=== PATIENT | female | born 1945 | race Caucasian/White ===

== ENCOUNTER 2017-05-17 12:12 | Emergency (ER) | payer MEDICARE, OTHER ==
[~2017-05-17] VITALS: Ht 162.6 cm; Wt 72.0 kg
[~2017-05-17 12:12] MED LIST: /CLON1TA PO; /WARF25TA OR; ASPI81TA7 PO; ATOR1TAB21 PO; BONI150T PO; CARISPRODOL PO; CHLO25TA3 PO; CYMB60CA3 PO; KLOR10TA5 PO; LUMI0.01 OU; OXYC30TA4 PO; PERC7.5T12 PO; TYLE325T5 PO; VERA360C PO; VITA200015 PO
[2017-05-17] MEDS ORDERED: SOMA350T PO (12:29)
[2017-05-17] MEDS ORDERED: NEUR600T PO (12:30)
[2017-05-17] MEDS ORDERED: POTA10CA PO (12:31)
[2017-05-17] MEDS ORDERED: ALEV220C2 PO (12:31)
[2017-05-17] MEDS ORDERED: HYDR-3713 PO (12:33)
[2017-05-17] MEDS ORDERED: CHLO25TA PO (12:33)
[2017-05-17] MEDS ORDERED: VITA200016 PO (12:33)
[2017-05-17] MEDS ORDERED: BIMA01SOL OU (12:33)
[2017-05-17] MEDS ORDERED: NS 1,000 ML IV SCH (12:39)
[2017-05-17] MEDS ORDERED: ONDANSETRON 4MG/2ML VIAL (J2405) IV ONE (12:45)
[2017-05-17 12:56] LABS: BASO # 0.1 K/mm3 (0.0-0.2); BASO % 0.4 % (0.0-1.0); EOS # 0.4 K/mm3 (0.0-0.50); EOS % 2.8 % (0.0-3.0); LARGE UNSTAINED CELL # 0.1 K/mm3 (0.0-0.4); LARGE UNSTAINED CELL % 0.6 % (0.0-4.0); LYMPH # 1.6 K/mm3 (1.5-4.5); LYMPH % 11.1 % (24.0-44.0); MEAN CORPUSCULAR HEMOGLOBIN 32.6 pg (27.0-33.0); MEAN CORPUSCULAR HGB CONC 34.4 g/dl (32.0-36.5); MEAN CORPUSCULAR VOLUME 94.7 fl (80.0-96.0); MONO # 0.5 K/mm3 (0.0-0.8); MONO % 3.6 % (0.0-5.0); NEUTROPHILS # 11.5 K/mm3 (1.8-7.7); NEUTROPHILS % 81.5 % (36.0-66.0); PLATELET COUNT, AUTOMATED 431 k/mm3 (150-450); WHITE BLOOD COUNT 14.1 K/mm3 (4.0-10.0)
[2017-05-17 13:24] LABS: ALBUMIN 4.1 GM/DL (3.2-5.2); ALBUMIN/GLOBULIN RATIO 0.91 (1.00-1.93); ALKALINE PHOSPHATASE 186 U/L (45-117); ALT/SGPT 35 U/L (12-78); ANION GAP 9 MEQ/L (8-16); AST/SGOT 20 U/L (15-37); BILIRUBIN,DIRECT 0.1 MG/DL (0.0-0.2); BILIRUBIN,TOTAL 0.8 MG/DL (0.2-1.0); BLOOD UREA NITROGEN 21 MG/DL (7-18); CALCIUM LEVEL 9.7 MG/DL (8.8-10.2); CARBON DIOXIDE LEVEL 26 MEQ/L (21-32); CHLORIDE LEVEL 100 MEQ/L (98-107); GLOMERULAR FILTRATION RATE > 60.0 (>39); GLUCOSE, FASTING 132 MG/DL (83-110); POTASSIUM SERUM 3.6 MEQ/L (3.5-5.1); SODIUM LEVEL 135 MEQ/L (136-145); TOTAL PROTEIN 8.6 GM/DL (6.4-8.2)
[2017-05-17] MEDS ORDERED: ACETAMINOPHEN 325 MG TAB As Ordered ONE (13:49)
[2017-05-17] MEDS ORDERED: ACETAMINOPHEN TAB 650MG DOSE (2X325MG) PO ONE (14:00)
[2017-05-17] MEDS ORDERED: GASTROGRAFIN SOLUTION 30ML (Q9963) PO ONE ×2 (14:15→14:45)
[2017-05-17] MEDS ORDERED: ISOVUE-370 76% 100ML VIAL (Q9967) As Ordered ONE (14:34)
[2017-05-17] MEDS ORDERED: PROMETHAZINE INJ 25 MG/ML VIAL (J2550) IV ONE (15:30)
--- NOTE | 2017-05-17 15:35 | REP ---
CT of the abdomen and pelvis with IV contrast, without bowel contrast: Comparison is 11/04/2013. The the patient has a known dumbbell shaped abdominal aortic aneurysm. The superior most portion today measures 30.1 mm (previously 30 mm). The inferior portion today measures 28 mm (previously 26 mm). There is no periaortic hematoma. There is vascular atheroma throughout the abdominal aorta. 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 There is no stenosis of the superior mesenteric artery. The visualized lung lopez are unremarkable. The hepatic parenchyma is homogeneous. There are surgical clips in the gallbladder fossa. The pancreas is unremarkable. The spleen is unremarkable. The adrenals and kidneys are unremarkable. There is no bowel distension or obstruction. Pelvis: The patient indicates he has an appendectomy. There is no ascites or adenopathy. There is wall thickening of the descending colon and sigmoid colon compatible with colitis in the appropriate clinical setting. The bladder is unremarkable. There is a right hip arthroplasty. There is surgical fusion of the lumbar spine. Impression: Wall thickening of the descending colon and sigmoid colon compatible with colitis in the appropriate clinical setting. No ascites or adenopathy. Dumbbell shaped abdominal aortic aneurysm as described. Cholecystectomy and appendectomy. Stenosis of the proximal celiac artery. Signed by Bubba Gagnon MD 05/17/2017 03:27 P
[2017-05-17] MEDS ORDERED: metroNIDAZOLE 500 MG in APPROPRIATE DILUENT 1 EA IV ONE (16:00)
[2017-05-17] MEDS ORDERED: CIPROFLOXACIN 400 MG in APPROPRIATE DILUENT 1 EA IV ONE (16:00)
[2017-05-17 16:14] VITALS: BP 154/84
[2017-05-17] MEDS ORDERED: CIPR-249 PO (19:25)
[2017-05-17] MEDS ORDERED: FLAG500T PO (19:25)
[2017-05-17] MEDS ORDERED: FLUC150T PO (19:30)
[2017-05-17] MEDS ORDERED: PROM50TA4 PO (19:37)
--- NOTE | 2017-05-18 05:53 | ED PDOC ---
Post-Departure Follow-Up radiology report faxed to Jaja Stewart MD May 18, 2017 05:53
== END 2017-05-17 19:45 | disposition home or self-care (01) ==
LOC: M ED 12:12 → EDBD 12:12 → M ED 19:45
DX: K52.9 Noninfective gastroenteritis and colitis, unspecified (principal); I10 Essential (primary) hypertension; E78.4 Other hyperlipidemia; Z87.891 Personal history of nicotine dependence
CPT/HCPCS: 74177; 80048; 80076; 83690; 85025; 93041; 94760; 96365; 96368; 96375; 99285; J0744; J2405; Q9967

== ENCOUNTER → 2017-08-12 | Outpatient (REF) | payer MEDICARE, OTHER ==
[~2017-08-12] MED LIST changes: +ALEV220C2 PO; +BIMA01SOL OU; +CHLO25TA PO; +CIPR-249 PO; +FLAG500T PO; +FLUC150T PO; +HYDR-3713 PO; +NEUR600T PO; +POTA10CA PO; +PROM50TA4 PO; +SOMA350T PO; +VITA200016 PO
[2017-08-12 18:58] LABS: URIC ACID 4.2 MG/DL (2.6-6.0)
== END ==
LOC: M LAB REF 16:41
PROVIDERS: ATTEND Nurse Practitioner Family
DX: M25.561 Pain in right knee (principal)

== ENCOUNTER 2019-01-23 18:40 | Emergency (ER) | payer MEDICARE, OTHER ==
[~2019-01-23 18:40] MED LIST changes: -/CLON1TA PO; -/WARF25TA OR; +CLON-412 PO; +COUM1TAB18 OR; +KLOR10TA76 PO; -POTA10CA PO
[2019-01-23] MEDS ORDERED: FUROSEMIDE 40 MG/4 ML VIAL (J1940) IV ONE (19:00)
[2019-01-23] MEDS ORDERED: NITROGLYCERIN 2% OINT 1 GM *U/D* PKT TOP ONE (19:00)
[2019-01-23 19:07] LABS: BASO # 0.1 10^3/uL (0.0-0.2); BASO % 0.7 % (0.0-1.0); EOS # 0.3 10^3/uL (0.0-0.50); EOS % 2.8 % (0.0-3.0); HEMATOCRIT 39.6 % (36.0-47.0); HEMOGLOBIN 12.3 g/dl (12.0-15.5); LYMPH # 3.8 10^3/uL (1.5-4.5); LYMPH % 36.6 % (24.0-44.0); MEAN CORPUSCULAR HGB CONC 31.1 g/dl (32.0-36.5); MEAN CORPUSCULAR VOLUME 103.1 fl (80.0-96.0); MONO # 0.3 10^3/uL (0.0-0.8); MONO % 3.1 % (0.0-5.0); NEUTROPHILS # 5.8 10^3/uL (1.8-7.7); NEUTROPHILS % 55.7 % (36.0-66.0); PLATELET COUNT, AUTOMATED 439 10^3/uL (150-450); RED BLOOD COUNT 3.84 10^6/uL (4.00-5.40); WHITE BLOOD COUNT 10.4 10^3/uL (4.0-10.0)
[2019-01-23 19:08] VITALS: BP 145/70
--- NOTE | 2019-01-23 19:13 | REP ---
Clinical: Cough. Dyspnea. Comparison: 06/08/2012 Findings: The cardiac silhouette is within normal limits. Lung lopez demonstrate markedly increased interstitial markings and indistinct pulmonary vasculature along with possible mid to lower lobe opacities. Differential diagnosis includes interstitial edema as well as multifocal pneumonia / bronchitis. No effusion. No pneumothorax. Skeletal structures intact. Impression: Differential diagnosis includes interstitial edema versus multifocal pneumonia / bronchitis. Electronically Signed by Reynaldo Xavier MD 01/23/2019 07:05 P
[2019-01-23 19:14] LABS: ABG BASE EXCESS -5.3 (-2.0-2.0); ABG HCO3 23.4 MEQ/L (22.0-26.0); ABG O2 SATURATION 90.3 % (95.0-99.0); ABG TOTAL CO2 25.3 MEQ/L (23.0-31.0)
[2019-01-23 19:19] LABS: ABG PARTIAL PRESSURE CO2 60.4 mmHg (35.0-45.0); ABG pH (ARTERIAL) 7.206 UNITS (7.350-7.450)
[2019-01-23] MEDS ORDERED: ALBUTEROL SULFATE 2.5 MG/0.5 ML INH NEB SOLN INH ONE (19:30)
[2019-01-23] MEDS ORDERED: IPRATROPIUM 0.5MG/ALBUTEROL 2.5MG INH SOL UD 3ML (DUONEB)(J7620) NEB ONE (19:30)
[2019-01-23 19:36] LABS: INR 0.96; PROTHROMBIN TIME 12.9 SECONDS (12.1-14.4)
[2019-01-23 19:54] LABS: ALBUMIN 3.1 GM/DL (3.2-5.2); ALT/SGPT 52 U/L (12-78); BILIRUBIN,DIRECT < 0.1 MG/DL (0.0-0.2); BILIRUBIN,TOTAL 0.2 MG/DL (0.2-1.0); BLOOD UREA NITROGEN 25 MG/DL (7-18); CALCIUM LEVEL 8.6 MG/DL (8.8-10.2); CARBON DIOXIDE LEVEL 26 MEQ/L (21-32); CHLORIDE LEVEL 106 MEQ/L (98-107); CPK CREATINE PHOSPHOKINASE 260 U/L (26-192); CREATININE FOR GFR 1.28 MG/DL (0.55-1.30); GLOMERULAR FILTRATION RATE 43.4 (>39); GLUCOSE, FASTING 241 MG/DL (70-100); MB/CK RELATIVE INDEX 5.08 (< OR =4); NT-PRO BNP 4571 PG/ML (<125); POTASSIUM SERUM 4.4 MEQ/L (3.5-5.1); SODIUM LEVEL 143 MEQ/L (136-145); TOTAL PROTEIN 6.6 GM/DL (6.4-8.2); TROPONIN I 3.56 NG/ML (< 0.10)
[2019-01-23 20:14] LABS: PARTIAL THROMBOPLASTIN TIME 28.6 SECONDS (25.4-37.6)
[2019-01-23] MEDS ORDERED: HEPARIN DRIP 25,000 UNITS in APPROPRIATE DILUENT 1 EA IV SCH (20:53)
[2019-01-23] MEDS ORDERED: HEPARIN SOD (PORCINE) 5000 UNITS/ML VIAL IV ONE (21:00)
[2019-01-23 21:08] LABS: VENOUS BASE EXCESS 0.4 (-2.0-2.0); VENOUS HCO3 29.8 MEQ/L (23.0-27.0); VENOUS O2 SATURATION 62.2 % (60.0-80.0); VENOUS PARTIAL PRESSURE CO2 72.2 mmHg (38.0-50.0); VENOUS PARTIAL PRESSURE O2 38.7 mmHg (30.0-50.0); VENOUS PH 7.233 UNITS (7.330-7.430); VENOUS STANDARD HCO3 24.1 MEQ/L
--- NOTE | 2019-01-23 21:13 | ECGEPIP ---
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
--- NOTE | 2019-01-23 21:17 | ECGEPIP ---
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
[2019-01-23 21:50] LABS: MB/CK RELATIVE INDEX 5.02 (< OR =4); TROPONIN I 4.48 NG/ML (< 0.10)
[2019-01-23 22:15] LABS: ABG HCO3 28.2 MEQ/L (22.0-26.0); ABG O2 SATURATION 98.8 % (95.0-99.0); ABG PARTIAL PRESSURE CO2 51.2 mmHg (35.0-45.0); ABG PARTIAL PRESSURE O2 181.3 mmHg (75.0-100.0); ABG STANDARD HCO3 26.3 MEQ/L (22.0-26.0); ABG TOTAL CO2 29.8 MEQ/L (23.0-31.0); ABG pH (ARTERIAL) 7.359 UNITS (7.350-7.450)
[2019-01-23 23:55] VITALS: BP 102/58
== END 2019-01-23 23:59 | disposition short-term general hospital (02) ==
LOC: M ED 18:40 → EDBD 18:40 → M ED 23:59
DX: I21.4 Non-ST elevation (NSTEMI) myocardial infarction (principal); I50.9 Heart failure, unspecified; I44.7 Left bundle-branch block, unspecified; I11.0 Hypertensive heart disease with heart failure; E78.5 Hyperlipidemia, unspecified; I71.4 Abdominal aortic aneurysm, without rupture; Z79.82 Long term (current) use of aspirin; Z87.891 Personal history of nicotine dependence
CPT/HCPCS: 36415; 36600; 71045; 80048; 80076; 82550; 82553; 82803; 83605; 83880; 84443; 84484; 85025; 85610; 85730; 87040; 87486; 87581; 87633; 87798; 93005; 93041; 94640; 94660; 96374; 96375; 99285; J1940

== ENCOUNTER → 2019-03-13 | Outpatient (REF) | payer MEDICARE, OTHER ==
[2019-03-13 14:17] LABS: PERCENT SATURATION 29.6 % (13.2-45.0)
== END ==
LOC: M LAB REF 13:19
PROVIDERS: ATTEND Internal Medicine
DX: D64.9 Anemia, unspecified (principal)

== ENCOUNTER → 2019-04-11 | Outpatient (CLI) | payer MEDICARE, OTHER ==
--- NOTE | 2019-04-11 15:12 | REP ---
REASON: Pain after sprain. PRIORS: None. There is asymmetric joint space narrowing with osteophytosis and subchondral sclerosis involving the 1st metatarsophalangeal joint, which is severe in appearance. More mild to moderate degenerative changes are seen throughout the remainder of the foot. There is a large retrocalcaneal heel spur. IMPRESSION: Chronic changes, as described above. Electronically Signed by Rigoberto Galloway DO 04/12/2019 03:19 P
--- NOTE | 2019-04-11 19:49 | REP ---
Left ankle series: Four views. History: Sprain. Findings: Four views of the left ankle demonstrate intact ankle mortise. No fracture or subluxation is seen. There is some midfoot spurring. A chip fracture is suspected at the dorsal surface of the distal talus. There is Achilles and plantar calcaneal spurring. Impression: Suspect chip fracture at the dorsal aspect of the distal talus on the lateral film. There is overlying soft tissue swelling. 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 Electronically Signed by Yovany Simpson MD 04/11/2019 09:15 P
== END ==
LOC: M WUC 12:48
PROVIDERS: ATTEND Physician Assistant
DX: M25.772 Osteophyte, left ankle (principal); M77.32 Calcaneal spur, left foot

== ENCOUNTER → 2021-03-24 | Outpatient (REF) | payer MEDICARE, OTHER ==
[2021-03-24 17:37] LABS: CREATININE FOR GFR 1.13 MG/DL (0.55-1.30); GLOMERULAR FILTRATION RATE 49.8 (>39)
== END ==
LOC: M LAB REF 15:38 → M WUC 15:38
PROVIDERS: ATTEND Orthopaedic Surgery Orthopaedic Surgery of the Spine
DX: Z00.00 Encounter for general adult medical examination without abnormal findings (principal); M54.5 Low back pain

== ENCOUNTER → 2021-04-01 | Outpatient (REF) | payer MEDICARE, OTHER ==
[2021-04-01 17:08] LABS: ALBUMIN 3.7 GM/DL (3.2-5.2); PERCENT SATURATION 24.9 % (13.2-45.0)
== END ==
LOC: M LABDRWCV 16:11
PROVIDERS: ATTEND Orthopaedic Surgery
DX: Z01.818 Encounter for other preprocedural examination (principal); M25.559 Pain in unspecified hip; M16.9 Osteoarthritis of hip, unspecified

== ENCOUNTER → 2021-04-20 | Outpatient (REF) | payer MEDICARE, OTHER ==
[2021-04-20 17:08] LABS: INR 0.99; PROTHROMBIN TIME 13.5 SECONDS (12.7-14.5)
[2021-04-20 17:09] LABS: PARTIAL THROMBOPLASTIN TIME 30.7 SECONDS (25.9-37.0)
[2021-04-20 17:11] LABS: APPEARANCE, URINE CLOUDY (CLEAR); BACTERIA, URINE AUTO NEGATIVE (NEGATIVE); BILIRUBIN, URINE AUTO NEGATIVE (NEGATIVE); BLOOD, URINE BLOOD NEGATIVE (NEGATIVE); COLOR, URINE YELLOW (YELLOW); GLUCOSE, URINE (UA) AUTO NEGATIVE (NEGATIVE); KETONE, URINE AUTO NEGATIVE (NEGATIVE); LEUKOCYTE ESTERASE, URINE AUTO 3+ (NEGATIVE); MUCUS, URINE SMALL (NEGATIVE); NITRITE, URINE AUTO NEGATIVE (NEGATIVE); PROTEIN, URINE AUTO NEGATIVE (NEGATIVE); RBC, URINE AUTO 2 /HPF (0-3); SQUAMOUS EPITHELIAL CELL UR AU 9 /HPF (0-6); UROBILINOGEN, URINE AUTO 0.2 mg/dL (0.0-2.0); WBC, URINE AUTO 37 /HPF (0-3)
== END ==
LOC: M LAB REF 16:34
PROVIDERS: ATTEND Internal Medicine
DX: Z01.810 Encounter for preprocedural cardiovascular examination (principal); M16.9 Osteoarthritis of hip, unspecified; I50.9 Heart failure, unspecified; Z79.899 Other long term (current) drug therapy

== ENCOUNTER → 2021-06-22 | Outpatient (REF) | payer MEDICARE, OTHER ==
[~2021-06-22] MED LIST changes: -KLOR10TA76 PO; +POTA-136 PO
== END ==
LOC: M LAB REF 16:42
PROVIDERS: ATTEND Internal Medicine
DX: R74.01 Elevation of levels of liver transaminase levels (principal)

== ENCOUNTER → 2021-07-03 | Outpatient (CLI) | payer MEDICARE, OTHER ==
--- NOTE | 2021-07-07 17:43 | REP ---
INDICATION: AAA / ELEVATED ALK PHOS. COMPARISON: None. TECHNIQUE: Real time imaging FINDINGS: A dumbbell shaped distal abdominal aortic aneurysm is present with each aneurysm measuring approximately 3 cm in AP diameter and 2.6 cm in transverse diameter. This extends over an approximately 6.5 cm length. The liver is mildly more echogenic than the cortex of the right kidney consistent with mild fatty infiltration. The pancreas was not seen due to bowel gas. The right kidney is sonographically normal. The gallbladder is known to be surgically absent. The common duct is normal at 5 mm and no enlarged intrahepatic ducts are evident. IMPRESSION: Dumbbell-shaped distal abdominal aortic aneurysm as above. 2. Mild fatty infiltration of the liver. <Electronically signed by Filippo Lawler > 07/07/21 1803
== END ==
LOC: M RAD 09:57
PROVIDERS: ATTEND Internal Medicine
DX: I71.4 Abdominal aortic aneurysm, without rupture (principal); R74.01 Elevation of levels of liver transaminase levels

== ENCOUNTER → 2021-12-09 | Outpatient (CLI) | payer MEDICARE, OTHER ==
[~2021-12-09] MED LIST changes: -FLUC150T PO; +FLUC150T9 PO
== END ==
LOC: M WHC 10:21
PROVIDERS: ATTEND Internal Medicine
DX: Z12.31 Encounter for screening mammogram for malignant neoplasm of breast (principal)

== ENCOUNTER → 2024-03-26 | Outpatient (CLI) | payer MEDICARE, OTHER | LOC: M WHC 10:01 | PROVIDERS: ATTEND Internal Medicine | DX: Z12.31 Encounter for screening mammogram for malignant neoplasm of breast (principal); M81.0 Age-related osteoporosis without current pathological fracture ==

== ENCOUNTER → 2025-03-27 | Outpatient (CLI) | payer MEDICARE, OTHER | LOC: M RAD 08:50 | PROVIDERS: ATTEND Orthopaedic Surgery | DX: Z96.641 Presence of right artificial hip joint (principal) | CPT/HCPCS: 78315; A9503 ==

== ENCOUNTER → 2025-05-13 | Outpatient (CLI) | payer MEDICARE, OTHER ==
[~2025-05-13] MED LIST changes: +PROHANCE 279.3MG/ML 15ML VIAL ONE
== END ==
LOC: M PLAIMG 13:07
PROVIDERS: ATTEND Orthopaedic Surgery
DX: M51.362 Other intervertebral disc degeneration, lumbar region with discogenic back pain and lower extremity pain (principal); Z98.1 Arthrodesis status

== ENCOUNTER → 2025-05-13 | Outpatient (CLI) | payer MEDICARE, OTHER ==
[~2025-05-13] MED LIST changes: -PROHANCE 279.3MG/ML 15ML VIAL ONE
== END ==
LOC: M WHC 13:07
PROVIDERS: ATTEND Internal Medicine
DX: Z12.31 Encounter for screening mammogram for malignant neoplasm of breast (principal)

== ENCOUNTER → 2025-07-04 | Outpatient (CLI) | payer MEDICARE, OTHER ==
[2025-07-04 11:45] LABS: PLATELET COUNT, AUTOMATED 332 10^3/uL (150-450)
[2025-07-04 12:03] LABS: INR 1.0
== END ==
LOC: M LABDRAWC 09:32
PROVIDERS: ATTEND Orthopaedic Surgery
DX: Z01.818 Encounter for other preprocedural examination (principal); Z79.01 Long term (current) use of anticoagulants